=== PATIENT | male | born 1955 | race Caucasian/White ===

== ENCOUNTER → 2018-02-13 | Outpatient (CLI) | payer OTHER ==
--- NOTE | 2018-02-13 11:02 | CT ---
EXAMINATION TYPE: CT brain angelia saldivar DATE OF EXAM: 02/13/2018 COMPARISON: NONE HISTORY: Fall off of roof, trauma, pain, S 83.8X1A CT DLP: 1444.0 mGycm Automated exposure control for dose reduction was used. TECHNIQUE: CT scan of the head and cervical spine are performed without contrast. FINDINGS: There is no acute intracranial hemorrhage, mass effect, or midline shift identified. The ventricles and sulci are within normal limits in size. The globes are intact and the visualized sin uses are remarkable for inflammatory change in the right and left maxillary sinus, ethmoid air cells, there may be polyp within the sphenoid sinus. Cervical spine is visualized in its entirety from C1 through upper thoracic levels and demonstrates s atisfactory alignment without evidence of acute fracture or dislocation. Some disc bulges possible fo raminal encroachment noted incidentally. Prevertebral soft tissue appears within normal limits. The C1-C2 articulation is unremarkable. IMPRESSION: 1. There is no acute fracture or dislocation evident in the cervical spine. Degenerative disc changes are suspected as described which may be better evaluated with MRI, follow-up as indicated. 2. No acute intracranial hemorrhage, mass effect, or midline shift is seen.
--- NOTE | 2018-02-13 11:25 | XR ---
EXAMINATION TYPE: XR wrist complete RT DATE OF EXAM: 02/13/2018 CLINICAL HISTORY: Fall TECHNIQUE: Frontal, lateral and oblique images of the right wrist are obtained. COMPARISON: None FINDINGS: There is no acute fracture/dislocation evident in the right wrist. Moderate degenerative c hange of the first metacarpophalangeal joint is seen as bony proliferation and joint space narrowing with opposing surface sclerosis. The overlying soft tissue appears unremarkable. IMPRESSION: There is no acute fracture or dislocation in the right wrist.
--- NOTE | 2018-02-13 11:31 | XR ---
Lumbar spine HISTORY: Trauma, pain 3 views of the lumbar spine Lumbar vertebral bodies show preserved height and alignment. Bone mineralization is reduced. There is multilevel spondylosis. Mild loss of disc height is suspected at the lumbosacral junction, there is a mild spinal curvature. Facet arthropathy suspected, sclerosis present at the posterior aspect of th e lumbosacral junction. IMPRESSION: No acute fracture or subluxation. Degenerative disc disease and facet arthropathy.
--- NOTE | 2018-02-13 11:32 | XR ---
EXAMINATION TYPE: XR knee complete RT DATE OF EXAM: 02/13/2018 CLINICAL HISTORY: Fall off of a ladder with subsequent right knee pain TECHNIQUE: Three views of the right knee are obtained. COMPARISON: None. FINDINGS: There is no acute fracture/dislocation evident in right knee. Small patellar osteophytes a re seen superiorly. The tri-compartment joint spaces appear within normal limits. The overlying sof t tissue appears unremarkable. IMPRESSION: There is no acute fracture or dislocation in the right knee.
--- NOTE | 2018-02-13 11:32 | XR ---
EXAMINATION TYPE: XR Hip RT and AP Pelvis DATE OF EXAM: 02/13/2018 COMPARISON: NONE HISTORY: Trauma and pain TECHNIQUE: A single AP view of the pelvis is obtained. Two views of the right hip are obtained. FINDINGS: There is no acute fracture/dislocation evident in the pelvis. The hip and sacroiliac join ts appear symmetric and unremarkable. The overlying soft tissue appears unremarkable. Two views of right hip show no acute fracture or dislocation. No focal lytic or sclerotic lesion see n in the proximal right femur. The overlying soft tissue is unremarkable. Prostate calcification no lay incidentally. IMPRESSION: There is no acute fracture or dislocation in the pelvis or right hip.
--- NOTE | 2018-02-13 11:33 | XR ---
Right humerus HISTORY: Trauma and pain 2 views of the right humerus Bone mineralization, joint spaces and alignment are maintained. IMPRESSION: No fracture or dislocation.
== END | disposition home or self-care (01) ==
LOC: RADCTMAIN 10:17
PROVIDERS: ATTEND Emergency Medicine
DX: S13.4XXA Sprain of ligaments of cervical spine, initial encounter (principal); M79.621 Pain in right upper arm; S63.501A Unspecified sprain of right wrist, initial encounter; S83.8X1A Sprain of other specified parts of right knee, initial encounter; S70.01XA Contusion of right hip, initial encounter
CPT/HCPCS: 70450; 72100; 72125; 73502

== ENCOUNTER → 2018-02-16 | Outpatient (CLI) | payer OTHER ==
--- NOTE | 2018-02-16 16:52 | XR ---
EXAMINATION TYPE: XR shoulder complete RT DATE OF EXAM: 02/16/2018 COMPARISON: NONE HISTORY: Pain after fall 4 days ago TECHNIQUE: 3 views FINDINGS: I see no fracture nor dislocation. Joint spaces are normal. There are no pathologic calcifi cations. IMPRESSION: Negative right shoulder exam.
--- NOTE | 2018-02-16 16:53 | XR ---
EXAMINATION TYPE: XR hand complete RT DATE OF EXAM: 02/16/2018 COMPARISON: NONE HISTORY: Pain after fall TECHNIQUE: 3 views FINDINGS: There is some deformity of fifth metacarpal consistent with old healed fracture. I see no a cute fracture nor dislocation. There are no erosions. IMPRESSION: No acute abnormality of the right hand. Minor spurring noted at the IP joint of the thumb .
== END ==
LOC: RADXRMAIN 16:26
PROVIDERS: ATTEND Emergency Medicine
DX: S60.221D Contusion of right hand, subsequent encounter (principal); M25.741 Osteophyte, right hand; M79.621 Pain in right upper arm

== ENCOUNTER → 2024-09-27 | Outpatient (CLI) | payer OTHER ==
--- NOTE | 2024-09-27 16:45 | XR ---
Lumbar spine. HISTORY: Back pain COMPARISON: 02/13/2018. TECHNIQUE: 3 views of the lumbar spine were obtained FINDINGS: The lumbar vertebral segments are normal in height and alignment and there is no fracture or subluxat ion. The disc spaces are well preserved. Visualized sacrum and SI joints normal. Moderate degenerative changes of the facet joints at the L4-5 and L5-S1 levels. IMPRESSION: 1. No lumbar spine fracture or malalignment. 2. No significant degenerative disc disease. 3. Osteoarthritic change of the facet joints in the lower lumbar spine. [facility], Workstation: [email or web address], 09/27/2024 4:43 PM
--- NOTE | 2024-09-27 16:45 | XR ---
EXAMINATION TYPE: XR elbow complete RT DATE OF EXAM: 09/27/2024 4:36 PM COMPARISON: None. CLINICAL INDICATION: Male, 69 years old with history of S50.01XA, S30.0XXA, S70.11XA, fall on ice one week prior, pain. TECHNIQUE: 3 view(s) obtained. FINDINGS: Radius aligns normally with the humerus. No acute fractures or dislocations evident. No elevation of the anterior fat pad is evident. Posterior fat pad is normal. IMPRESSION: 1. No acute osseous abnormality right elbow [facility], , 09/27/2024 4:43 PM
--- NOTE | 2024-09-27 16:47 | XR ---
Pelvis. HISTORY: Pain following fall. COMPARISON: 02/13/2018. TECHNIQUE: Single AP view the pelvis is obtained. FINDINGS: Pelvis is intact and there is no fracture or focal intraosseous abnormality. There is no diastasis or sclerosis of the SI joints or pubic symphysis. The hips are normal and symmetric bilaterally without fracture or dislocation. IMPRESSION: No evidence of acute trauma. [facility], Workstation: [email or web address], 09/27/2024 4:45 PM
--- NOTE | 2024-09-27 16:48 | XR ---
Sacrum and coccyx. HISTORY: Pain following fall. COMPARISON: None. TECHNIQUE: 3 views of the sacrum and coccyx were obtained. FINDINGS: There is no fracture or focal intraosseous abnormality. The SI joints are normal and symmetric. IMPRESSION: No evidence of acute trauma. [facility], Workstation: [facility], 09/27/2024 4:46 PM
--- NOTE | 2024-09-28 12:47 | XR ---
EXAMINATION TYPE: XR femur 2 views aLT DATE OF EXAM: 09/27/2024 COMPARISON: NONE CLINICAL INDICATION: Male, 69 years old with history of S50.01XA, S30.0XXA, S70.11XA; FINDINGS: Osteitis pubis. Mild degenerative change at the left hip with marginal spurring. Extensor mechanism a ppears intact of the knee. No acute fracture is identified. Subchondral cystic change at the medial f emoral condyle suggests some underlying degenerative change of the medial compartment. IMPRESSION: Findings suggest some underlying medial compartmental OA at the knee. Mild left hip OA. No acute frac ture seen. [facility], , 09/28/2024 12:44 PM
== END | disposition home or self-care (01) ==
LOC: RADXRMAIN 15:45
PROVIDERS: ATTEND Emergency Medicine
DX: S50.01XA Contusion of right elbow, initial encounter (principal); S30.0XXA Contusion of lower back and pelvis, initial encounter; S70.11XA Contusion of right thigh, initial encounter
CPT/HCPCS: 72100; 72170; 72220

== ENCOUNTER → 2024-10-01 | Outpatient (CLI) | payer OTHER ==
--- NOTE | 2024-10-01 10:51 | XR ---
Right femur. HISTORY: Pain following fall 2 weeks prior. COMPARISON: None TECHNIQUE: 4 views of the right femur were obtained. FINDINGS: There is no fracture, dislocation or focal intraosseous abnormality. There is no cortical disruption or periosteal reaction. There is minimal arteriovascular calcification. There is a 13 mm well-defined hypodensity in the dist al right femoral metadiaphyseal region most likely representing a benign enchondroma. The right hip joint space is well-preserved. There is moderate narrowing of the lateral compartment of the knee consistent with moderate osteoarth ritis and probable mild osteoarthritis of the medial compartment. IMPRESSION: 1. No acute fracture or dislocation. 2. Degenerative changes in the knees is good above. 3. Well-circumscribed cystic-appearing lesion in the right distal metadiaphyseal region most likely r epresenting a benign enchondroma. [facility], , 10/01/2024 10:49 AM
== END | disposition home or self-care (01) ==
LOC: RADXRMAIN 09:42
PROVIDERS: ATTEND Emergency Medicine
DX: S70.11XD Contusion of right thigh, subsequent encounter (principal); M17.11 Unilateral primary osteoarthritis, right knee; X58.XXXD Exposure to other specified factors, subsequent encounter

== ENCOUNTER → 2024-10-08 | Outpatient (CLI) | payer OTHER ==
--- NOTE | 2024-10-08 09:44 | CT ---
EXAMINATION TYPE: CT sacrum wo con DATE OF EXAM: 10/08/2024 9:28 AM COMPARISON: None. CLINICAL INDICATION: Male, 69 years old with history of S30.0XXD CONTUSION OF LOWER BACK AND PELVIS, TAILBONE PAIN, TECHNIQUE: Contiguous axial scanning of the sacrum without IV contrast. Coronal and sagittal reconstr uctions performed. CT DLP: 504.4 mGycm, Automated exposure control for dose reduction was used. FINDINGS: Degenerative bony ankylosis at the left SI joint. Moderate degenerative change right SI joint. Diffuse osteopenia. Suggestion of underlying degenerative change at the hips. Central prosthetic calc ifications. Hypertrophic facet arthropathy lower lumbar spine especially towards the right. Slight posterior angu lation of the distal coccygeal segment with some possible mild surrounding soft tissue swelling, sagi ttal image 26 and axial image 50. Fracture line not well seen. IMPRESSION: CONSIDER A SUBTLE NONDISPLACED LOWER TAILBONE FRACTURE GIVEN SOME SOFT TISSUE SWELLING AND SLIGHT POS TERIOR ANGULATION OF THE DISTAL COCCYGEAL SEGMENT. FRACTURE LINE ITSELF IS NOT WELL SEEN. [facility], Workstation: [email or web address], 10/08/2024 9:41 AM
== END | disposition home or self-care (01) ==
LOC: RADCTMAIN 09:12
PROVIDERS: ATTEND Emergency Medicine
DX: S32.2XXB Fracture of coccyx, initial encounter for open fracture (principal); S30.0XXD Contusion of lower back and pelvis, subsequent encounter
CPT/HCPCS: 72192